=== PATIENT | male | born 1935 | race Caucasian/White ===

== ENCOUNTER → 2017-04-25 | Emergency (ER) | payer OTHER ==
[~2017-04-25] VITALS: Ht 167.6 cm; Wt 88.5 kg
[~2017-04-25] MED LIST: ASA-EC81 MG; ASA-EC81 MG PO; COZAAR50 MG; COZAAR50 MG PO; FOLIC ACID1 MG; FOLIC ACID1 MG PO; HUMULIN 70100 UNIT/2 SUBCUTANEO; INSULINA; LIPITOR40 MG; LIPITOR40 MG PO; LOPRESSOR25 MG PO; PENTOXIFYLLINE400 MG; PENTOXIFYLLINE400 MG PO; PLAVIX75 MG; PLAVIX75 MG PO; ZANTAC300 MG; ZANTAC300 MG PO
== END | disposition home or self-care (01) ==
LOC: ER 13:41
DX: L02.11 Cutaneous abscess of neck (principal)